=== PATIENT | male | born 1955 | race Two or more races ===

== ENCOUNTER 2018-07-20 12:56 | Inpatient (IN) | payer OTHER ==
[2018-07-20 13:04] VITALS: BMI 33.5
[2018-07-20] MEDS ORDERED: PANTOPRAZOLE SODIUM 40 MG VIAL IVPUSH ONE (13:05)
--- NOTE | 2018-07-20 13:05 | PDOC ---
Rapid Medical Evaluation Time Seen by Provider: 07/20/18 13:00 Medical Evaluation: I have performed a brief in-person evaluation of this patient. The patient presents with a chief complaint of: s/p TAVR (on AC) on has been having melena for around a month; is on Coumadin and states coumadin was stopped on 07/15 and then switched to Lovenox; had EGD and colonoscopy done by Dr. Cardenas today (reports w/ patient); was advised to come to ED by Dr. Cardenas Pertinent physical exam findings: In NAD I have ordered the following: Labs The patient will proceed to the ED for further evaluation. 07/20/18 13:00
[2018-07-20] MEDS ORDERED: PANTOPRAZOLE SODIUM 40 MG VIAL ONE (13:15)
[2018-07-20 13:59] LABS: BASO % 0.6 % (0-2.0); EOS % 1.3 % (0-4.5); HEMATOCRIT 32.5 % (35.4-49); LYMPH % 26.4 % (8-40); MCHC 33.8 g/dl (32.0-35.9); MEAN CELL VOLUME 79.7 fl (80-96); MEAN PLT VOLUME 8.3 fl (7.5-11.1); MONO % 6.9 % (3.8-10.2); NEUT % 64.8 % (42.8-82.8); PLATELET COUNT 130 K/MM3 (134-434); RBC 4.08 M/mm3 (4.00-5.60); RDW 16.7 % (11.9-15.9); WHITE BLOOD COUNT 4.1 K/mm3 (4.0-10.0)
[2018-07-20 14:14] LABS: INR 1.08 (0.83-1.09); PROTHROMBIN TIME (PATIENT) 12.7 SEC (9.7-13.0)
[2018-07-20 14:16] LABS: ACTIVATED PTT 28.4 SECONDS (25.2-36.5)
--- NOTE | 2018-07-20 14:17 | PDOC ---
History of Present Illness - General Chief Complaint: Pain Stated Complaint: STOMACH UCLER Time Seen by Provider: 07/20/18 13:00 History Source: Patient Exam Limitations: No Limitations - History of Present Illness Initial Comments: 07/20/18 14:12 Pt is a 62yo F with PMH of Afib (on Lovenox, was on Coumadin), Arotic valve replacement, CAD s/p stent, PVD, DM presenting to ED from Dr. Cardenas's office s/ p clips for Duieulafoy lesion found with endoscopy today. Pt states he has been having melanous stools for about 1 month, had colonoscopy yesterday and repeat colonoscopy with endoscopy today. Lesion was found and clipped. Pt sent here for monitoring of Hgb which was 12 last month. Pt does not have any complaints at this time, no lightheadedness, abdominal pain, chest pain, palpitations, headache, syncope, sob, weakness, fevers, chills. PMD: Ankit PMH: see hpi PSH: see hpi Meds: see med rec Allergies: vancomycin (skin eruption) Past History - Past Medical History Allergies/Adverse Reactions: Allergies Allergy/AdvReac Type Severity Reaction Status Date / Time vancomycin Allergy Verified 07/20/18 13:04 Home Medications: Ambulatory Orders Unobtainable 07/20/18 Cardiac Disorders: Yes (valve replacement, stents) COPD: No Diabetes: Yes - Surgical History Cardiac Surgery: Yes - Suicide/Smoking/Psychosocial Hx Smoking History: Never smoked Information on smoking cessation initiated: No Hx Alcohol Use: No Drug/Substance Use Hx: No Review of Systems - Review of Systems Constitutional: No: Chills, Fever, Weakness HEENTM: No: Symptoms Reported Respiratory: No: Cough, Shortness of Breath, Hemoptysis Cardiac (ROS): No: Chest Pain, Lightheadedness, Palpitations, Syncope ABD/GI: Yes: Tarry Stools. No: Constipated, Diarrhea, Nausea, Vomiting, Abdominal cramping : No: Burning, Dysuria, Hematuria Musculoskeletal: No: Back Pain, Joint Pain, Muscle Pain Integumentary: No: Symptoms Reported Neurological: No: Headache, Numbness, Tingling *Physical Exam - Vital Signs Last Vital Signs Temp Pulse Resp BP Pulse Ox 98 F 84 19 125/62 100 07/20/18 13:02 07/20/18 13:02 07/20/18 13:02 07/20/18 13:02 07/20/18 13:02 - Physical Exam General Appearance: Yes: Nourished, Appropriately Dressed. No: Apparent Distress HEENT: positive: EOMI, SON, Normal ENT Inspection Neck: positive: Trachea midline, Supple. negative: Lymphadenopathy (R), Lymphadenopathy (L) Respiratory/Chest: positive: Lungs Clear, Normal Breath Sounds. negative: Crackles, Rales, Rhonchi, Stridor, Wheezing Cardiovascular: positive: Regular Rhythm, Regular Rate, S1, S2. negative: Edema , JVD, Murmur Vascular Pulses: Carotid (R): 2+, Carotid (L): 2+, Dorsalis-Pedis (R): 2+, Doralis-Pedis (L): 2+ Gastrointestinal/Abdominal: positive: Normal Bowel Sounds, Soft, Protuberent. negative: Tender Musculoskeletal: negative: CVA Tenderness Extremity: positive: Normal Capillary Refill, Pelvis Stable. 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 fixer II-XII NML intact, Fully Oriented, Alert, Normal Mood/ Affect, Normal Response, Motor Strength 5/5 Moderate Sedation - Procedure Monitoring Vital Signs: Procedure Monitoring Vital Signs Temperature 98 F 07/20/18 13:02 Pulse Rate 84 07/20/18 13:02 Respiratory Rate 19 07/20/18 13:02 Blood Pressure 125/62 07/20/18 13:02 O2 Sat by Pulse Oximetry (%) 100 07/20/18 13:02 ED Treatment Course - LABORATORY CBC & Chemistry Diagram: 07/20/18 13:20 07/20/18 13:20 - ADDITIONAL ORDERS Additional order review: 07/20/18 13:20 RBC 4.08 MCV 79.7 L MCHC 33.8 RDW 16.7 H MPV 8.3 Neutrophils % 64.8 Lymphocytes % 26.4 Monocytes % 6.9 Eosinophils % 1.3 Basophils % 0.6 - Medications Given in the ED: ED Medications Discontinued Medications Generic Name Dose Route Start Last Admin Trade Name Freq PRN Reason Stop Dose Admin Pantoprazole Sodium 40 mg 07/20/18 13:05 07/20/18 13:44 Protonix Iv IVPUSH 03/20/19 13:06 40 mg ONCE ONE Administration Medical Decision Making - Medical Decision Making 07/20/18 14:17 Pt is a 62yo F with PMH of Afib (on Lovenox, was on Coumadin), Arotic valve replacement, CAD s/p stent, PVD, DM presenting to ED from Dr. Cardenas's office s/ p clips for Duieulafoy lesion found with endoscopy today. Pt states he has been having melanous stools for about 1 month, had colonoscopy yesterday and repeat colonoscopy with endoscopy today. Lesion was found and clipped. Pt sent here for monitoring of Hgb which was 12 last month. Pt does not have any complaints at this time, no lightheadedness, abdominal pain, chest pain, palpitations, headache, syncope, sob, weakness, fevers, chills. Vitals: wnl PE: benign. Will admit for serial h/h. labs ordered by RME. added ekg. hgb today is 11 (dropped one unit in one month). Source seems to have been found and fixed. Cr 1.6 (no prior to compare to). Pt accepted to Dr. Justice's service *DC/Admit/Observation/Transfer Diagnosis at time of Disposition: Dieulafoy lesion (hemorrhagic) of stomach and duodenum GI bleed Qualifiers: GI bleed type/associated pathology: melena Qualified Code(s): K92.1 - Melena - Discharge Dispostion Condition at time of disposition: Good Decision to Admit order: Yes - Referrals - Patient Instructions - Post Discharge Activity
[2018-07-20 14:18] LABS: ANION GAP 7 MMOL/L (8-16); BLOOD UREA NITROGEN 53 mg/dL (7-18); CALCIUM 8.4 mg/dL (8.5-10.1); CHLORIDE 106 mmol/L (98-107); CO2 25 mmol/L (21-32); CREATININE 1.6 mg/dL (0.55-1.3); GLUCOSE,RANDOM 128 mg/dL (74-106); POTASSIUM 4.9 mmol/L (3.5-5.1); SODIUM 138 mmol/L (136-145)
--- NOTE | 2018-07-20 14:59 | PDOC ---
Attending Attestation - Resident Resident Name: MadisonSaMarylou - ED Attending Attestation I have performed the following: I have examined & evaluated the patient, The case was reviewed & discussed with the resident, I agree w/resident's findings & plan, Exceptions are as noted - HPI HPI: Pt is a 62yo F with PMH of Afib (on Lovenox, was on Coumadin), Arotic valve replacement, CAD s/p stent, PVD, DM presenting to ED from Dr. Cardenas's office s/ p endocsopy which demonstrates dieulafoy lesion s/p clipping. Pt reports having melanotic stools for about 1 month, seen by PMD and was sent to GI. S/p colonoscopy the day prior and endoscopy today which revealed a dieulafoy lesion. Pt sent to the ER for admission for serial hgb evaluation Pt does not have any complaints at this time, no lightheadedness, abdominal pain , chest pain, palpitations, headache, syncope, sob, weakness, fevers, chills. - Physicial Exam PE: 07/20/18 15:38 GENERAL: The patient is in no acute distress. ENT: Ears normal, nares patent, oropharynx clear without exudates. Moist mucous membranes. NECK: Normal range of motion, supple, no nuchal rigidity LUNGS: Breath sounds equal, clear to auscultation bilaterally. No wheezes, and no crackles. HEART:Regular rate and rhythm, normal S1 and S2 without murmur, rub or gallop. ABDOMEN: Soft, nontender, normoactive bowel sounds. EXTREMITIES: Normal range of motion, no edema. NEUROLOGICAL: Cranial nerves II through XII grossly intact. Normal speech. No focal neurological deficits. SKIN: Warm, Dry, normal turgor, no rashes or lesions noted. - Medical Decision Making 07/20/18 14:55 62-year-old male presented to emergency department for admission. Briefly patient has a history of A. fib on Coumadin, diabetes. Patient had been complaining of melena. Was seen by GI today where endoscopy revealed reportedly lesion. This was clipped 2. Patient was sent to the ER for serial Hgb Will do Labs Will give Protonix Will admit 07/20/18 15:37 EKG: NSR rate of 81 bpm, LAD, no st elevation or depression, t waves upright
[2018-07-20] MEDS ORDERED: DEXTROSE 5%-NORMAL SALINE 1,000 ML IV SCH (18:15)
--- NOTE | 2018-07-20 19:20 | CON.GI ---
Consult Consult Specialty:: GI - History of Present Illness History of Present Illness: 62 y/o male with history of mechanical aortic valve replacement on coumadin was transferee from the [facility] after undergoing EGD with control of bleeding secondary to a Dieulafoy's lesion. I spoke to his outside personal fitness trainer and suggested to restart Coumadin once acute bleeding has resolved. He still has intermittent melena, His hemoglobin is 11. - Alcohol/Substance Use Hx Alcohol Use: No - Smoking History Smoking history: Never smoked Home Medications - Allergies Allergies/Adverse Reactions: Allergies Allergy/AdvReac Type Severity Reaction Status Date / Time vancomycin Allergy Verified 07/20/18 13:04 - Home Medications Home Medications: Ambulatory Orders Unobtainable 07/20/18 Physical Exam-GI Vital Signs: Vital Signs Temperature 98.6 F 07/20/18 16:30 Pulse Rate 82 07/20/18 16:30 Respiratory Rate 19 07/20/18 16:30 Blood Pressure 124/57 L 07/20/18 16:30 O2 Sat by Pulse Oximetry (%) 100 07/20/18 16:30 Constitutional: Yes: Well Nourished Eyes: Yes: Conjunctiva Clear HENT: Yes: Atraumatic Neck: Yes: Supple Cardiovascular: Yes: Regular Rate and Rhythm, Murmur Respiratory: Yes: Regular ...Palpate: Yes: Soft. No: Firm/Rigid, Guarding, Hepatomegaly, Mass, Pulsatile Mass, Splenomegaly, Tenderness Labs: CBC, BMP 07/20/18 13:20 07/20/18 13:20 INR, PTT INR 1.08 (0.83-1.09) 07/20/18 13:20 Problem List - Problems (1) GI bleed Assessment/Plan: secondary to Dielufay's lesion R> IV Protonix Cardiology consult start Heparin in am if no signs of bleeding Dr Serrano is covering tomorrow and Myesha the next day. check CBC in am Code(s): K92.2 - GASTROINTESTINAL HEMORRHAGE, UNSPECIFIED
--- NOTE | 2018-07-20 19:23 | HP ---
Admitting History and Physical - Primary Care Physician PCP: Blake Pham - Admission Chief Complaint: stomach ulcer History of Present Illness: Patient is a 62 y/o male with past medical history of Afib (on Lovenox bridge due to procedure but regulary on Coumadin), AVR, CAD s/p stent x 4-5, PVD, DM. Patient presented from Dr. Cardenas office where he underwent an EGD and was noted to have Duieulafoy lesion where clips where placed. Also complains of melenous stools since colonoscopy 1 month ago. Patient was sent by Dr. Cardenas for Hg monitoring. Current Hg 11.0. Denies complaints of chest pain, SOB, nausea, vomiting, abdominal pain. 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 No: Aneurysm, Aortic Insufficiency , Aortic Stenosis, CHF, Deep Vein Thrombosis, HTN, Hyperlipdemia, DC, Mitral Insufficiency, Mitral Stenosis, Murmur, Pulmonary Hypertension Pulmonary: No: Asthma, Bronchitis, Cancer, COPD, O2 Dependent, Pneumonia, Previously Intubated, Pulmonary Embolus, Pulmonary Fibrosis, Sleep Apnea, Other Gastrointestinal: No: Ascites, Cancer, Constipation, Crohn's Disease, Diverticulitis, Diverticulosis, Esophageal Varices, Gastritis, GERD, GI Bleed, Hemorrhoids, Hiatal Hernia, Inflamatory Bowel Disease, Irritable Bowel Disease, Pancreatitis, Peptic Ulcer Disease, Ulcerative Colitis, Other Hepatobiliary: No: Cirrhosis, Cholelithiasis, Cholecystitis, Choledocholithiasis , Hepatitis A, Hepatitis B, Hepatitis C, Other Renal/: No: Renal Failure, Renal Inusuff, BPH, Cancer, Hematuria, Hemodialysis , Neurogenic Bladder, Renal Calculi, UTI, Other Heme/Onc: No: Anemia, B12 Deficiency, Bleeding Disorder, Cancer, Current Chemotherapy, Current Radiation Therapy, Hemochromatosis, Hypercoaguable State, Myeloproliferative Synd, Sickle Cell Disease, Sickle Cell Trait, Thrombocytopenia, Other Infectious Disease: No: AIDS, C-Diff, Herpes Zoster, HIV, MRSA, STD's, Tuberculosis, VREF, Other Psych: No: Addictions, Anxiety, Bipolar, Depression, Panic, Psychosis, Schizophrenia, Other Musculoskeletal: No: Bursitis, Chronic low back pain, Hemiparesis, Hemiplegia, Osteoarthritis, Paraplegia, Other Rheumatology: No: Fibromyalgia, Gout, Lupus, Rheumatoid Arthritis, Sarcoidosis, Vasculitis, Other ENT: No: Allergic Rhinitis, Sinusitis, Other Endocrine: Yes: Diabetes Mellitus Dermatology: No: Basal Cell, Cellulitis, Eczema, Melanoma, Psoriasis, Squamous Cell, Other - Past Surgical History Past Surgical History: Yes: Colonoscopy, Valve Replacement - Smoking History Smoking history: Never smoked Have you smoked in the past 12 months: No - Alcohol/Substance Use Hx Alcohol Use: No - Social History Usual Living Arrangement: Yes: With Spouse ADL: Independent Home Medications - Allergies Allergies/Adverse Reactions: Allergies Allergy/AdvReac Type Severity Reaction Status Date / Time vancomycin Allergy Verified 07/20/18 13:04 - Home Medications Home Medications: Ambulatory Orders Unobtainable 07/20/18 Review of Systems - Review of Systems Constitutional: reports: No Symptoms Eyes: reports: No Symptoms HENT: reports: No Symptoms Neck: reports: No Symptoms Cardiovascular: reports: No Symptoms Respiratory: reports: No Symptoms Gastrointestinal: reports: Melena Genitourinary: reports: No Symptoms Breasts: reports: No Symptoms Reported Musculoskeletal: reports: No Symptoms Integumentary: reports: No Symptoms Neurological: reports: No Symptoms Endocrine: reports: No Symptoms Hematology/Lymphatic: reports: No Symptoms Psychiatric: reports: No Symptoms Physical Examination Vital Signs: Vital Signs Temperature 98.6 F 07/20/18 16:30 Pulse Rate 82 07/20/18 16:30 Respiratory Rate 19 07/20/18 16:30 Blood Pressure 124/57 L 07/20/18 16:30 O2 Sat by Pulse Oximetry (%) 100 07/20/18 16:30 Constitutional: Yes: Well Nourished, No Distress, Calm Eyes: Yes: Conjunctiva Clear HENT: Yes: Atraumatic Neck: Yes: Supple Cardiovascular: Yes: Regular Rate and Rhythm Respiratory: Yes: Regular, CTA Bilaterally Gastrointestinal: Yes: Normal Bowel Sounds, Soft, Other (non tender) Musculoskeletal: Yes: WNL Extremities: Yes: WNL Edema: No Neurological: Yes: Alert, Oriented Psychiatric: Yes: Alert, Oriented Labs: CBC, BMP 07/20/18 13:20 07/20/18 13:20 Problem List - Problems (1) HTN (hypertension) Assessment/Plan: -continue with lisinopril, coreg, lasix Code(s): I10 - ESSENTIAL (PRIMARY) HYPERTENSION (2) Diabetes Assessment/Plan: -ISS -victoza held until diet resumed -BGM ACHS Code(s): E11.9 - TYPE 2 DIABETES MELLITUS WITHOUT COMPLICATIONS (3) Hyperlipidemia Assessment/Plan: -continue with atorvastatin and zetia Code(s): E78.5 - HYPERLIPIDEMIA, UNSPECIFIED (4) GI bleed Assessment/Plan: -IV hydration -clear liquid diet -Pantoprazole -Hg 11, monitor Hg daily Code(s): K92.2 - GASTROINTESTINAL HEMORRHAGE, UNSPECIFIED Qualifiers: GI bleed type/associated pathology: melena Qualified Code(s): K92.1 - Melena (5) S/P AVR Assessment/Plan: -cardio consult -holding lovenox and afib 2/2 GI bleed until cleared to start Code(s): Z95.2 - PRESENCE OF PROSTHETIC HEART VALVE Assessment/Plan see problem list dvt ppx
[2018-07-20] MEDS: PANTOPRAZOLE SODIUM 80 MG in SODIUM CHLORIDE 100 ML IVPB SCH (19:42)
[2018-07-20] MEDS: SODIUM CHLORIDE 1,000 ML IV SCH (20:00)
[2018-07-20] MEDS ORDERED: INSULIN (NOVOLOG) ASPART 100 UNITS/ML 10ML VIAL ONE (21:10)
[2018-07-20] MEDS: ATORVASTATIN CA 40 MG TABLET (FP) PO SCH (21:30)
[2018-07-20] MEDS: INSULIN SLIDING SCALE (NOVOLOG) 1 VIAL SQ SCH (21:30)
[2018-07-21] MEDS: SODIUM CHLORIDE 1,000 ML IV SCH (02:45)
[2018-07-21] MEDS: PANTOPRAZOLE SODIUM 80 MG in SODIUM CHLORIDE 100 ML IVPB SCH ×2 (04:19→14:50)
[2018-07-21] MEDS: INSULIN SLIDING SCALE (NOVOLOG) 1 VIAL SQ SCH (06:36)
[2018-07-21] MEDS ORDERED: LIRAGLUTIDE 0.6 MG/0.1 ML PEN.INJCTR SQ SCH (07:00)
[2018-07-21] MEDS ORDERED: PT OWN MED DRAWER 7, Y5N ONE (07:03)
[2018-07-21 09:03] LABS: HEMATOCRIT 31.7 % (35.4-49); HEMOGLOBIN 10.7 GM/dL (11.7-16.9); MCH 26.8 pg (25.7-33.7); MCHC 33.6 g/dl (32.0-35.9); MEAN PLT VOLUME 7.5 fl (7.5-11.1); PLATELET COUNT 79 K/MM3 (134-434); RBC 3.97 M/mm3 (4.00-5.60); RDW 16.2 % (11.9-15.9); WHITE BLOOD COUNT 3.2 K/mm3 (4.0-10.0)
[2018-07-21 09:21] LABS: INR 1.07 (0.83-1.09); PROTHROMBIN TIME (PATIENT) 12.6 SEC (9.7-13.0)
[2018-07-21] MEDS: LISINOPRIL 5 MG TABLET (FP) PO SCH (09:21)
[2018-07-21] MEDS: CARVEDILOL 12.5 MG TABLET (FP) PO SCH (09:21)
[2018-07-21] MEDS: EZETIMIBE 10 MG TABLET (FP) PO SCH (09:22)
[2018-07-21] MEDS: FUROSEMIDE 20 MG TABLET (FP) PO SCH (09:22)
[2018-07-21 09:35] LABS: ALBUMIN 3.7 g/dl (3.4-5.0); ALK PHOS 57 U/L (45-117); ANION GAP 6 MMOL/L (8-16); BILIRUBIN,TOTAL 2.4 mg/dL (0.2-1); BLOOD UREA NITROGEN 44 mg/dL (7-18); CALCIUM 7.9 mg/dL (8.5-10.1); CHLORIDE 108 mmol/L (98-107); CO2 26 mmol/L (21-32); CREATININE 1.4 mg/dL (0.55-1.3); GLUCOSE,RANDOM 200 mg/dL (74-106); MAGNESIUM 3.6 mg/dL (1.8-2.4); PHOSPHOROUS 3.6 mg/dL (2.5-4.9); POTASSIUM 4.9 mmol/L (3.5-5.1); SGOT/AST 50 U/L (15-37); SGPT/ALT 62 U/L (13-61); SODIUM 140 mmol/L (136-145); TOT PROT 6.6 g/dl (6.4-8.2)
--- NOTE | 2018-07-21 09:54 | PN ---
Progress Note, Physician Chief Complaint: Dieulafoy lesion Melena Afib History of Present Illness: Previous notes and events reviewed awake and alert NAD continue to have episodes of melena - Current Medication List Current Medications: Active Medications Atorvastatin Calcium (Lipitor -) 40 mg PO HS [facility] Last Admin: 07/20/18 21:30 Dose: 40 mg Carvedilol (Coreg -) 12.5 mg PO DAILY [facility] Last Admin: 07/21/18 09:21 Dose: 12.5 mg Ezetimibe (Zetia -) 10 mg PO DAILY [facility] Last Admin: 07/21/18 09:22 Dose: 10 mg Furosemide (Lasix -) 20 mg PO DAILY [facility] Last Admin: 07/21/18 09:22 Dose: 20 mg Pantoprazole Sodium 80 mg/ (Sodium Chloride) 100 mls @ 10 mls/hr IVPB Q10H [facility] Last Admin: 07/21/18 04:19 Dose: 10 mls/hr Sodium Chloride (Normal Saline -) 1,000 mls @ 150 mls/hr IV ASDIR [facility] Stop: 07/23/18 02:09 Last Admin: 07/21/18 02:45 Dose: 150 mls/hr Insulin Aspart (Novolog Vial Sliding Scale -) 1 vial SQ [facility]; Protocol Last Admin: 07/21/18 06:36 Dose: Not Given Liraglutide (Victoza -) 1.2 mg SQ DAILY@0700 [facility] Last Admin: 07/21/18 07:02 Dose: 1.2 mg Lisinopril (Prinivil) 2.5 mg PO DAILY [facility] Last Admin: 07/21/18 09:21 Dose: 2.5 mg - Objective Vital Signs: Vital Signs Temperature 97.9 F 07/21/18 06:00 Pulse Rate 79 07/21/18 06:00 Respiratory Rate 18 07/21/18 06:00 Blood Pressure 114/52 L 07/21/18 06:00 O2 Sat by Pulse Oximetry (%) 100 07/20/18 22:00 Constitutional: Yes: Well Nourished, No Distress, Calm Eyes: Yes: Conjunctiva Clear HENT: Yes: Atraumatic Neck: Yes: Supple Cardiovascular: Yes: Regular Rate and Rhythm Respiratory: Yes: Regular, CTA Bilaterally Gastrointestinal: Yes: Normal Bowel Sounds, Soft Musculoskeletal: Yes: WNL Extremities: Yes: WNL Edema: No Neurological: Yes: Alert, Oriented Psychiatric: Yes: Alert, Oriented Labs: CBC, BMP 07/21/18 08:10 07/21/18 08:10 INR, PTT INR 1.07 (0.83-1.09) 07/21/18 08:10 Problem List - Problems (1) HTN (hypertension) Assessment/Plan: -continue with lisinopril, coreg, lasix Code(s): I10 - ESSENTIAL (PRIMARY) HYPERTENSION (2) Diabetes Assessment/Plan: -ISS -victoza held until diet resumed -[facility] ACHS Code(s): E11.9 - TYPE 2 DIABETES MELLITUS WITHOUT COMPLICATIONS (3) Hyperlipidemia Assessment/Plan: -continue with atorvastatin and zetia Code(s): E78.5 - HYPERLIPIDEMIA, UNSPECIFIED (4) GI bleed Assessment/Plan: -IV hydration -clear liquid diet -Pantoprazole -Hg 10.7, monitor Hg daily Code(s): K92.2 - GASTROINTESTINAL HEMORRHAGE, UNSPECIFIED Qualifiers: GI bleed type/associated pathology: melena Qualified Code(s): K92.1 - Melena (5) S/P AVR Assessment/Plan: -cardio consult -holding lovenox and coumadin afib 2/2 GI bleed, will re-start when no active bleeding Code(s): Z95.2 - PRESENCE OF PROSTHETIC HEART VALVE Assessment/Plan see problem list dvt ppx
[2018-07-21 10:57] LABS: EPI CELLS 0 /HPF (FEW); HYALINE CASTS 0 /hpf (NEGATIVE); URINE APPEARANCE CLEAR; URINE BACTERIA 0.666 /hpf (NEGATIVE); URINE BILIRUBIN NEGATIVE (<2.0 mg/dL); URINE COLOR YELLOW; URINE GLUCOSE (UA) NEGATIVE (NEGATIVE); URINE KETONE NEGATIVE (NEGATIVE); URINE LEUK ESTERASE NEGATIVE (NEGATIVE); URINE NITRITE NEGATIVE (NEGATIVE); URINE PROTEIN NEGATIVE (NEGATIVE); URINE RBC 0 /hpf (0-3); URINE UROBILINOGEN 0.2 mg/dL (0.2-1.0); URINE WBC 0 /hpf (3-5)
--- NOTE | 2018-07-21 11:01 | EKG ---
Test Reason : Blood Pressure : / mmHG Vent. Rate : 081 BPM Atrial Rate : 081 BPM P-R Int : 162 ms QRS Dur : 100 ms QT Int : 370 ms P-R-T Axes : 063 -36 059 degrees QTc Int : 429 ms NORMAL SINUS RHYTHM LEFT AXIS DEVIATION INCOMPLETE RIGHT BUNDLE BRANCH BLOCK MINIMAL VOLTAGE CRITERIA FOR LVH, MAY BE NORMAL VARIANT CANNOT RULE OUT ANTERIOR INFARCT , AGE UNDETERMINED ABNORMAL ECG WHEN COMPARED WITH ECG OF 23-OCT-2009 12:08, MINIMAL CRITERIA FOR ANTERIOR INFARCT ARE NOW PRESENT NO SIGNIFICANT CHANGE WAS FOUND Confirmed by KOLTON ORNELAS, LINDA ([id number]) on 07/21/2018 11:00:47 AM Referred By: Confirmed By:LINDA HI MD
--- NOTE | 2018-07-21 16:52 | CON.CARD ---
Consult Consult Specialty:: cardiology Referred by:: Dr. Cardenas Reason for Consultation:: mechanical AVR on coumadin, GI bleed - History of Present Illness Chief Complaint: GI bleed History of Present Illness: 62 year old man with pmh reported mechanical AVR x 2 initially for endocarditis done at [facility], CAD s/p stents, reported h/o afib, pvd, DM admitted for h/o melena and EGD showing Dieulafoy's lesion for monitoring for further GI bleed. pt was on lovenox bridging prior to EGD with plan to resume coumadin once gi bleed resolves pt seen and examined today in nad. states he is feeling well. denies any chest pain, sob, palpitations. no pnd, orthopnea, or le edema. Follows with advertising supervisor Dr. Ogden. 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 No: Aneurysm, Aortic Insufficiency, Aortic Stenosis, CHF, Deep Vein Thrombosis, HTN, Hyperlipdemia, RI, Mitral Insufficiency, Mitral Stenosis, Murmur, Pulmonary Hypertension Pulmonary: No: Asthma, Bronchitis, Cancer, COPD, O2 Dependent, Pneumonia, Previously Intubated, Pulmonary Embolus, Pulmonary Fibrosis, Sleep Apnea, Other Gastrointestinal: No: Ascites, Cancer, Constipation, Crohn's Disease, Diverticulitis, Diverticulosis, Esophageal Varices, Gastritis, GERD, GI Bleed, Hemorrhoids, Hiatal Hernia, Inflamatory Bowel Disease, Irritable Bowel Disease, Pancreatitis, Peptic Ulcer Disease, Ulcerative Colitis, Other Hepatobiliary: No: Cirrhosis, Cholelithiasis, Cholecystitis, Choledocholithiasis , Hepatitis A, Hepatitis B, Hepatitis C, Other Renal/: No: Renal Failure, Renal Inusuff, BPH, Cancer, Hematuria, Hemodialysis , Neurogenic Bladder, Renal Calculi, UTI, Other Infectious Disease: No: AIDS, C-Diff, Herpes Zoster, HIV, MRSA, STD's, Tuberculosis, VREF, Other Psych: No: Addictions, Anxiety, Bipolar, Depression, Panic, Psychosis, Schizophrenia, Other Musculoskeletal: No: Bursitis, Chronic low back pain, Hemiparesis, Hemiplegia, Osteoarthritis, Paraplegia, Other Rheumatology: No: Fibromyalgia, Gout, Lupus, Rheumatoid Arthritis, Sarcoidosis, Vasculitis, Other ENT: No: Allergic Rhinitis, Sinusitis, Other Endocrine: Yes: Diabetes Mellitus Dermatology: No: Basal Cell, Cellulitis, Eczema, Melanoma, Psoriasis, Squamous Cell, Other - Past Surgical History Past Surgical History: Yes: Colonoscopy, Valve Replacement - Alcohol/Substance Use Hx Alcohol Use: No - Smoking History Smoking history: Never smoked Have you smoked in the past 12 months: No - Social History ADL: Independent Home Medications - Allergies Allergies/Adverse Reactions: Allergies Allergy/AdvReac Type Severity Reaction Status Date / Time vancomycin Allergy Verified 07/20/18 13:04 - Home Medications Home Medications: Ambulatory Orders Unobtainable 07/20/18 Family Disease History - Family Disease History Family History: Denies Review of Systems - Review of Systems Constitutional: denies: No Symptoms, Chills, Diaphoresis, Fever, Lethargy, Loss of Appetite, Malaise, Night Sweats, Unintentional Wgt. Loss, Weakness, Other Eyes: denies: No Symptoms, Blind Spots, Blurred Vision, Double Vision, Eye Pain , Floaters, Photophobia, Recent Change in Vision, Other HENT: denies: No Symptoms, Difficult Swallowing, Ear Discharge, Ear Pain, Epistaxis, Gingival Bleeding, Hearing Loss, Mouth Swelling, Nasal Congestion, Ocular Prosthesis, Throat Pain, Toothache, Ringing in Ears, Other Neck: denies: No Symptoms, Decreased ROM, Lumps, Pain on Movement, Stiffness, Swollen Glands, Tenderness, Other Cardiovascular: denies: No Symptoms, Chest Pain, Edema, Palpitations, Shortness of Breath, Other Respiratory: denies: No Symptoms, Cough, Exercise Intolerance, Hemoptysis, Orthopnea, PND, Snoring, SOB, SOB on Exertion, Wheezing, Other Gastrointestinal: reports: Melena, Rectal Bleeding. denies: No Symptoms, Abdominal Pain, Bloating, Constipation, Diarrhea, Dysphagia, Indigestion, Nausea , Vomiting, Vomiting Blood, Other Genitourinary: denies: No Symptoms, Burning, Discharge, Dysuria, Flank Pain, Frequency, Hematuria, Incontinence, Lesions, Menses, Pain, Testicular Mass, Testicular Pain, Testicular Swelling, Urgency, Vaginal Bleeding, Other Breasts: denies: No Symptoms Reported, See HPI, Breast Implants, Discharge from Nipple, Lumps, Pain, Skin Changes, Other Musculoskeletal: denies: No Symptoms, Back Pain, Crepitus, Decreased ROM, Extremity Pain, Joint Pain, Joint Swelling, Muscle Pain, Muscle Cramps, Muscle Weakness, Other Integumentary: denies: No Symptoms, Blister, Bruising, Change in Color, Eczema, Erythema, Incision, Lesions, Lump, Pallor, Pruritis, Rash, Wound, Other Neurological: denies: No Symptoms, Change in LOC, Change in Speech, Confusion, Dizziness, Headache, Incoordination, Numbness, Parasthesia, Pre-Existing Deficit , Seizure, Syncope, Tremors, Unsteady Gait, Weakness, Other Endocrine: denies: No Symptoms, Excessive Sweating, Flushing, Increased Hunger, Increased Thirst, Intolerance to Cold, Intolerance to Heat, Unexplained Weight Gain, Unexplained Weight Loss, Other Hematology/Lymphatic: denies: No Symptoms, Easily Bruised, Excessive Bleeding, Swollen Glands, Other Psychiatric: denies: No Symptoms, Altered Sleep Pattern, Anxiety, Depression, Hallucinations, Panic, Paranoia, Suicidal, Other Vital Signs: Vital Signs Temperature 98.0 F 07/21/18 10:00 Pulse Rate 76 07/21/18 10:00 Respiratory Rate 20 07/21/18 10:00 Blood Pressure 128/62 07/21/18 10:00 O2 Sat by Pulse Oximetry (%) 95 07/21/18 09:00 Constitutional: Yes: No Distress, Calm Eyes: Yes: Conjunctiva Clear, EOM Intact HENT: Yes: Atraumatic, Normocephalic Neck: Yes: Supple, Trachea Midline Respiratory: Yes: Regular, CTA Bilaterally. No: Rales, Rhonchi, SOB, Wheezes Gastrointestinal: Yes: Normal Bowel Sounds, Soft. No: Distention, Tenderness Cardiovascular: Yes: Regular Rate and Rhythm, Other (mechanical valve sound heard). No: Bradycardia, Tachycardia, Pulse Irregular, Gallop, Rub, Varicosities JVD: No Carotid Bruit: No PMI: Non-Displaced Heart Sounds: Yes: S1, S2. No: Split S2, S3, S4, Clicks, Gallop, Rub, Bruit Murmur: Yes: Systolic Murmur, Grade 2. No: Diastolic Murmur Extremities: Yes: WNL Edema: No Peripheral Pulses WNL: Yes Peripheral Pulses: 2+ Left Doralis Pedis, 2+ Right Dorsalis Pedis Neurological: Yes: Alert, Oriented Psychiatric: Yes: Alert, Oriented - Other Data Labs, Other Data: CBC, BMP 07/21/18 08:10 07/21/18 08:10 INR, PTT INR 1.07 (0.83-1.09) 07/21/18 08:10 nsr 81bpm, incomplete rbbb, lad, lvh, cannot rule out anterior infarct age undetermined Imaging - Results Chest X-ray: Report Reviewed, Image Reviewed EKG: Report Reviewed, Image Reviewed Other: Report Reviewed, Image Reviewed Assessment/Plan 62 year old man with pmh reported mechanical AVR x 2 initially for endocarditis done at [facility], CAD s/p stents, reported h/o afib, pvd, DM admitted for h/o melena and EGD showing Dieulafoy's lesion for monitoring for further GI bleed. pt was on lovenox bridging prior to EGD with plan to resume coumadin once gi bleed resolves denies any chest pain, sob, palpitations. no pnd, orthopnea, or le edema. Follows with advertising supervisor Dr. Ogden. Mechanical AVR-admitted with GI bleed s/p EGD, possible h/o pafib -nsr on admission ekg -was on lovenox bridging with plan to resume warfarin after egd if no further bleeding -given mechanical valve need to resume AC as soon as possible when felt safe from a GI standpoint -as per Dr. Cardenas's note from 07/21/18 could start heparin today if no further bleeding -please fup with GI if felt safe to start heparin gtt with plan to resume warfarin when safe to do so -cont other home cardiac meds coreg, lisinopril, and lasix
--- NOTE | 2018-07-21 17:33 | PN.GI ---
GI Progress Note Subjective: No acute events No abdominal pain Small dark BM this morning, bowel movement through the day - Objective Vital Signs: Vital Signs Temperature 98.0 F 07/21/18 10:00 Pulse Rate 76 07/21/18 10:00 Respiratory Rate 20 07/21/18 10:00 Blood Pressure 128/62 07/21/18 10:00 O2 Sat by Pulse Oximetry (%) 95 07/21/18 09:00 Constitutional: Calm Eyes: No: Sclera Icterus Cardiovascular: Yes: Regular Rate and Rhythm, Other (audible click) Respiratory: Yes: CTA Bilaterally Gastrointestinal Inspection: No: Distention ...Auscultate: Yes: Normoactive Bowel Sounds ...Palpate: Yes: Soft. No: Hepatomegaly, Splenomegaly, Tenderness Edema: No (No LE edema) Neurological: Yes: Alert Labs: CBC, BMP 07/21/18 08:10 07/21/18 08:10 INR, PTT INR 1.07 (0.83-1.09) 07/21/18 08:10 Problem List - Problems (1) Dieulafoy lesion (hemorrhagic) of stomach and duodenum Assessment/Plan: S/P outpatient endoscopic treatment yesterday by Dr. Cardenas. Ordered reepat CBC this evening and discussed decreasing platelet count with KEVON Gonzales as well as Dr. Brannon. Dr. Brannon will be evaluating the patient this evening. Continue protonix drip Follow-up evening CBC From GI perspective, OK to resume heparin Code(s): K31.82 - DIEULAFOY LESION (HEMORRHAGIC) OF STOMACH AND DUODENUM (2) Abnormal liver function tests Assessment/Plan: ? if secondary to chronic hemolysis secondary to mechanical AVR. Mr. Baxter states tht he was treated previously with Harvoni for chronic hepatitis C by Dr. Azucena Meredith at [facility]. Unclear what his baseline liver chemistries are or his platelets. Spoke with KEVON Gonzales. she was uncertain as well. Code(s): R94.5 - ABNORMAL RESULTS OF LIVER FUNCTION STUDIES
[2018-07-21 17:53] LABS: HEMATOCRIT 30.1 % (35.4-49); HEMOGLOBIN 10.4 GM/dL (11.7-16.9); MCH 27.5 pg (25.7-33.7); MCHC 34.4 g/dl (32.0-35.9); MEAN CELL VOLUME 79.8 fl (80-96); MEAN PLT VOLUME 7.7 fl (7.5-11.1); PLATELET COUNT 71 K/MM3 (134-434); RBC 3.77 M/mm3 (4.00-5.60); RDW 16.3 % (11.9-15.9)
[2018-07-21] MEDS ORDERED: HEPARIN NA (PORCINE) 5,000 UNITS/ML 1ML VIAL IVPUSH PRN ×2 (21:00)
--- NOTE | 2018-07-21 21:12 | CONSULT ---
Consult - text type - Consultation Consultation Note: 62 year old man with pmh reported mechanical AVR x 2 initially for endocarditis done at [facility], CAD s/p stents, reported h/o afib, pvd, DM admitted for h/o melena and EGD showing Dieulafoy's lesion for monitoring for further GI bleed. pt was on lovenox bridging prior to EGD with plan to resume coumadin once gi bleed resolves pt seen and examined today in nad. states he is feeling well. denies any chest pain, sob, palpitations. no pnd, orthopnea, or le edema. Follows with consultant dietitian Dr. Ogden. - Past Surgical History Past Surgical History: Yes: Colonoscopy, Valve Replacement - Smoking History Smoking history: Never smoked - Social History ADL: Independent Home Medications - Allergies Allergies/Adverse Reactions: Allergies Allergy/AdvReac Type Severity Reaction Status Date / Time vancomycin Allergy Verified 07/20/18 13:04 Last Vital Signs Temp Pulse Resp BP Pulse Ox 98.7 F 73 18 141/64 96 07/21/18 18:00 07/21/18 18:00 07/21/18 21:00 07/21/18 18:00 07/21/18 21:00 Cor: RSR, No murmurs, No gallops Lungs: Clear to P&A Abd: Soft, Normal bowel sounds, No organomegaly Ext:No significant edema Skin: No rashes, Integument intact Imaging - Results Chest X-ray: Report Reviewed, Image Reviewed EKG: Report Reviewed, Image Reviewed Other: Report Reviewed, Image Reviewed Assessment/Plan 62 year old man with pmh reported mechanical AVR x 2 initially for endocarditis done at [facility], CAD s/p stents, reported h/o afib, pvd, DM admitted for h/o melena and EGD showing Dieulafoy's lesion for monitoring for further GI bleed. pt was on lovenox bridging prior to EGD with plan to resume coumadin once gi bleed resolves denies any chest pain, sob, palpitations. no pnd, orthopnea, or le edema. Follows with consultant dietitian Dr. Ogden. Mechanical AVR-admitted with GI bleed s/p EGD, possible h/o pafib -was on lovenox bridging with plan to resume warfarin after egd if no further bleeding -given mechanical valve need to resume AC . discuused with gi thrombocytopenia---chronic per patient noted 2 yrs. ago h/o hep.c ? chronic liver dz--check b12/folate/tsh/ldh will follow
[2018-07-21] MEDS: ATORVASTATIN CA 40 MG TABLET (FP) PO SCH (22:05)
[2018-07-22] MEDS: SODIUM CHLORIDE 1,000 ML IV SCH ×3 (00:14→19:46)
[2018-07-22] MEDS: HEPARIN SOD,PORK IN 0.45% NACL 25,000 UNITS/500 ML INFUS.BAG IVPB SCH (00:30)
[2018-07-22] MEDS: PANTOPRAZOLE SODIUM 80 MG in SODIUM CHLORIDE 100 ML IVPB SCH ×3 (00:39→22:57)
[2018-07-22 08:50] LABS: BASO % 0.5 % (0-2.0); EOS % 1.4 % (0-4.5); HEMATOCRIT 29.3 % (35.4-49); HEMOGLOBIN 9.9 GM/dL (11.7-16.9); LYMPH % 21.8 % (8-40); MCHC 33.8 g/dl (32.0-35.9); MEAN CELL VOLUME 79.9 fl (80-96); MEAN PLT VOLUME 7.4 fl (7.5-11.1); NEUT % 69.3 % (42.8-82.8); PLATELET COUNT 63 K/MM3 (134-434); RBC 3.67 M/mm3 (4.00-5.60); RDW 15.9 % (11.9-15.9); WHITE BLOOD COUNT 2.7 K/mm3 (4.0-10.0)
[2018-07-22 10:20] LABS: ALBUMIN 3.7 g/dl (3.4-5.0); ALK PHOS 57 U/L (45-117); ANION GAP 5 MMOL/L (8-16); BILIRUBIN,TOTAL 1.7 mg/dL (0.2-1); BLOOD UREA NITROGEN 23 mg/dL (7-18); CALCIUM 7.5 mg/dL (8.5-10.1); CHLORIDE 112 mmol/L (98-107); CO2 25 mmol/L (21-32); CREATININE 1.2 mg/dL (0.55-1.3); GLUCOSE,RANDOM 195 mg/dL (74-106); POTASSIUM 4.7 mmol/L (3.5-5.1); SGOT/AST 48 U/L (15-37); SGPT/ALT 63 U/L (13-61); SODIUM 143 mmol/L (136-145); TOT PROT 6.6 g/dl (6.4-8.2)
[2018-07-22] MEDS ORDERED: PT OWN MED DRAWER 7, Y5N ONE ×2 (10:22→10:54)
[2018-07-22] MEDS: CARVEDILOL 12.5 MG TABLET (FP) PO SCH (11:02)
[2018-07-22] MEDS: FUROSEMIDE 20 MG TABLET (FP) PO SCH (11:02)
[2018-07-22] MEDS: LISINOPRIL 5 MG TABLET (FP) PO SCH (11:02)
[2018-07-22] MEDS: EZETIMIBE 10 MG TABLET (FP) PO SCH (11:03)
--- NOTE | 2018-07-22 12:01 | PN.GI ---
GI Progress Note Subjective: No overt bleeding Pancytopenia continued States being treated for CHC 18 months ago at [facility] - Objective Vital Signs: Vital Signs Temperature 98.2 F 07/22/18 05:15 Pulse Rate 75 07/22/18 05:15 Respiratory Rate 20 07/22/18 05:15 Blood Pressure 150/70 07/22/18 05:15 O2 Sat by Pulse Oximetry (%) 96 07/21/18 21:00 Constitutional: Calm Eyes: No: Sclera Icterus Cardiovascular: Yes: Regular Rate and Rhythm (+ Mechanical click) Respiratory: Yes: CTA Bilaterally Gastrointestinal Inspection: No: Distention ...Auscultate: Yes: Normoactive Bowel Sounds ...Palpate: No: Hepatomegaly, Splenomegaly, Tenderness ...Percussion: No: Tympanitic Edema: No (No LE edema) Neurological: Yes: Alert Labs: CBC, BMP 07/22/18 07:16 07/22/18 07:16 INR, PTT INR 1.07 (0.83-1.09) 07/21/18 08:10 Hepatic Panel Total Bilirubin 1.7 mg/dL (0.2-1) H 07/22/18 07:16 AST 48 U/L (15-37) H 07/22/18 07:16 ALT 63 U/L (13-61) H 07/22/18 07:16 Alkaline Phosphatase 57 U/L (45-117) 07/22/18 07:16 Albumin 3.7 g/dl (3.4-5.0) 07/22/18 07:16 - ....Imaging Ultrasound: Report Reviewed (US: Hepatosplenomegaly with fatty liver) Problem List - Problems (1) Dieulafoy lesion (hemorrhagic) of stomach and duodenum Assessment/Plan: No overt bleeding noted. While there was decreas in Hgb from yesterday there was an overall decrease in all cell lines as well, including worsening thrombocytopenia. ? if this is his baseline (given finding of hepatosplenomegaly on US) secondary to chronic liver disease. Per the patient, Last outpatient bloodwork was from a month ago at Carlos Baxter's office. Heparin started and hematology following Continue PPI drip for now. If no overt bleeding, change to PO Protonx 40mg daily in AM Mr. Baxter is concerned regarding issue with pancytopenia. 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 I discussed this and the above with KEVON Gonzales. Recommended that she contact his PMD's office to obtain prior bloodwork. Dr. Brunner will be resuming GI coverage for Dr. Cardenas after 5pm today Code(s): K31.82 - DIEULAFOY LESION (HEMORRHAGIC) OF STOMACH AND DUODENUM (2) Abnormal liver function tests Code(s): R94.5 - ABNORMAL RESULTS OF LIVER FUNCTION STUDIES
--- NOTE | 2018-07-22 12:33 | PN ---
Progress Note, Physician Chief Complaint: Dieulafoy lesion Melena Afib History of Present Illness: Previous notes and events reviewed awake and alert NAD Patient complain of chills and shaking this morning but afebrile pancytopenia is worsening, spoke with PMD Dr Pham and reviewed lab work from which shows Plt 92, wbc nl, Hg 12.7, RBC 4.89 - Current Medication List Current Medications: Active Medications Atorvastatin Calcium (Lipitor -) 40 mg PO HS [facility] Last Admin: 07/21/18 22:05 Dose: 40 mg Carvedilol (Coreg -) 12.5 mg PO DAILY [facility] Last Admin: 07/22/18 11:02 Dose: 12.5 mg Ezetimibe (Zetia -) 10 mg PO DAILY [facility] Last Admin: 07/22/18 11:03 Dose: 10 mg Furosemide (Lasix -) 20 mg PO DAILY [facility] Last Admin: 07/22/18 11:02 Dose: 20 mg Pantoprazole Sodium 80 mg/ (Sodium Chloride) 100 mls @ 10 mls/hr IVPB Q10H [facility] Last Admin: 07/22/18 11:45 Dose: 10 mls/hr Sodium Chloride (Normal Saline -) 1,000 mls @ 150 mls/hr IV ASDIR [facility] Stop: 07/23/18 02:09 Last Admin: 07/22/18 00:45 Dose: 150 mls/hr HEPARIN SOD,PORK IN 0.45% NACL (Heparin-1/2ns 25,000 Units/500) 25,000 units in 500 mls @ 20 mls/hr IVPB TITR [facility]; Protocol Last Admin: 07/22/18 00:30 Dose: 1,000 units/hr, 20 mls/hr Insulin Aspart (Novolog Vial Sliding Scale -) 1 vial SQ ACHS [facility]; Protocol Last Admin: 07/21/18 06:36 Dose: Not Given Liraglutide (Victoza -) 1.2 mg SQ DAILY@0700 [facility] Last Admin: 07/21/18 07:02 Dose: 1.2 mg Lisinopril (Prinivil) 2.5 mg PO DAILY [facility] Last Admin: 07/22/18 11:02 Dose: 2.5 mg - Objective Vital Signs: Vital Signs Temperature 98.2 F 07/22/18 05:15 Pulse Rate 75 07/22/18 05:15 Respiratory Rate 20 03/22/19 05:15 Blood Pressure 150/70 07/22/18 05:15 O2 Sat by Pulse Oximetry (%) 96 07/21/18 21:00 Constitutional: Yes: No Distress, Anxious Eyes: Yes: Conjunctiva Clear HENT: Yes: Atraumatic Cardiovascular: Yes: Regular Rate and Rhythm Respiratory: Yes: Regular, CTA Bilaterally Gastrointestinal: Yes: Normal Bowel Sounds, Soft Musculoskeletal: Yes: WNL Extremities: Yes: WNL Edema: No Neurological: Yes: Alert, Oriented Psychiatric: Yes: Alert, Oriented Labs: CBC, BMP 07/22/18 07:16 07/22/18 07:16 INR, PTT INR 1.07 (0.83-1.09) 07/21/18 08:10 Problem List - Problems (1) HTN (hypertension) Assessment/Plan: -continue with lisinopril, coreg, lasix Code(s): I10 - ESSENTIAL (PRIMARY) HYPERTENSION (2) Diabetes Assessment/Plan: -ISS -victoza -[facility] ACHS Code(s): E11.9 - TYPE 2 DIABETES MELLITUS WITHOUT COMPLICATIONS (3) Hyperlipidemia Assessment/Plan: -continue with atorvastatin and zetia Code(s): E78.5 - HYPERLIPIDEMIA, UNSPECIFIED (4) GI bleed Assessment/Plan: -IV hydration -clear liquid diet -Pantoprazole -Hg 9.9, monitor Hg daily Code(s): K92.2 - GASTROINTESTINAL HEMORRHAGE, UNSPECIFIED Qualifiers: GI bleed type/associated pathology: melena Qualified Code(s): K92.1 - Melena (5) S/P AVR Assessment/Plan: -cardio consult -started on Heparin drip Code(s): Z95.2 - PRESENCE OF PROSTHETIC HEART VALVE (6) Pancytopenia Assessment/Plan: -Plt 63, Wbc 2.7, RBC 3.67 -hematology on board -US shows hepatosplenomegaly -will monitor CBC daily Code(s): D61.818 - OTHER PANCYTOPENIA (7) Abnormal liver function tests Assessment/Plan: -US shows hepatosplenomegaly -hx of Hep C and treated with Harvoni, HCV pending -AST 48, ALT 63,alk phod nl -monitor LFT daily Code(s): R94.5 - ABNORMAL RESULTS OF LIVER FUNCTION STUDIES
--- NOTE | 2018-07-22 15:11 | PN ---
Progress Note (short form) - Note Progress Note: Patient seen and examined Progressive pancytopenia in hospital Episode of shaking chills this AM No documented fever however Hacking cough- non productive, but present x several months No dysuria hematuria Last Vital Signs Temp Pulse Resp BP Pulse Ox 98.2 F 81 20 143/64 96 07/22/18 13:44 07/22/18 13:44 07/22/18 05:15 07/22/18 13:44 07/21/18 21:00 HEENT: HUNTER, EOM Intact Oropharynx: No thrush, No mucositis, dentures Cor: RSR, No murmurs, No gallops, prosthetic heart valves in aortic area Lungs: Clear to P&A Abd: Soft, Normal bowel sounds, No organomegaly Ext:No significant edema Skin: No rashes, Integument intact CBC, BMP 07/22/18 07:16 07/22/18 07:16 Abnormal Lab Results 07/21/18 07/22/18 07/22/18 17:00 07:16 07:16 WBC 3.0 L 2.7 L RBC 3.77 L 3.67 L Hgb 10.4 L 9.9 L Hct 30.1 L 29.3 L MCV 79.8 L 79.9 L RDW 16.3 H Plt Count 71 L 63 L MPV 7.4 L PTT (Actin FS) Chloride 112 H Anion Gap 5 L BUN 23 H Random Glucose 195 H Calcium 7.5 L Total Bilirubin 1.7 H AST 48 H ALT 63 H 07/22/18 08:16 WBC RBC Hgb Hct MCV RDW Plt Count MPV PTT (Actin FS) 74.6 H Chloride Anion Gap BUN Random Glucose Calcium Total Bilirubin AST ALT Current Medications Generic Name Dose Route Start Last Admin Trade Name Freq PRN Reason Stop Dose Admin Atorvastatin Calcium 40 mg 07/20/18 22:00 07/21/18 22:05 Lipitor - PO 40 mg HS [facility] Administration Carvedilol 12.5 mg 07/21/18 10:00 07/22/18 11:02 Coreg - PO 12.5 mg DAILY [facility] Administration Ezetimibe 10 mg 07/21/18 10:00 07/22/18 11:03 Zetia - PO 10 mg DAILY [facility] Administration Furosemide 20 mg 07/21/18 10:00 07/22/18 11:02 Lasix - PO 20 mg DAILY [facility] Administration Pantoprazole Sodium 80 mg/ 100 mls @ 10 mls/hr 07/20/18 18:15 07/22/18 11:45 Sodium Chloride IVPB 10 mls/hr Q10H [facility] Administration 8 MG/HR Sodium Chloride 1,000 mls @ 150 mls/hr 07/20/18 19:30 07/22/18 00:45 Normal Saline - IV 07/23/18 02:09 150 mls/hr ASDIR NU[facility] Administration HEPARIN SOD,PORK IN 0.45% NACL 25,000 units in 500 mls @ 20 mls/hr 07/21/18 21 :00 07/22/18 00:30 Heparin-1/2ns 25,000 Units/500 IVPB 1,000 units/hr TITR [facility] 20 mls/hr Administration Protocol 1,000 UNITS/HR Insulin Aspart 1 vial 07/20/18 22:00 07/21/18 06:36 Novolog Vial Sliding Scale - SQ Not Given ACHS [facility] Protocol Liraglutide 1.2 mg 07/21/18 07:00 07/21/18 07:02 Victoza - SQ 1.2 mg DAILY@0700 [facility] Administration Lisinopril 2.5 mg 07/21/18 10:00 07/22/18 11:02 Prinivil PO 2.5 mg DAILY [facility] Administration Ultra sound - fatty liver - hepatosplenomegaly Impression: Progressive pancytopenia Abnormal LFT's Past hx of hepatitis C treated with Harvoni Etiology of progressive fall in platelets, WBC's in hospital unclear. Had shaking chills jn AM- ? infection ---> to culture - - Abnormal LFT's with prior hx of hepatitis C treated with Harvoni [place] hepatosplenomegaly-- contributing to pancytopenia. On heparin -- HIT AB pending but counts had begun to fall prior to heparin therapy Additional screening tests - pending
--- NOTE | 2018-07-22 16:24 | PN ---
Progress Note, Physician History of Present Illness: seen and examined today in nad. sitting on side of bed. denies further rectal bleeding. states zetia given him dry sinuses and has mild nose bleed. - Current Medication List Current Medications: Active Medications Atorvastatin Calcium (Lipitor -) 40 mg PO HS [facility] Last Admin: 07/21/18 22:05 Dose: 40 mg Carvedilol (Coreg -) 12.5 mg PO DAILY [facility] Last Admin: 07/22/18 11:02 Dose: 12.5 mg Ezetimibe (Zetia -) 10 mg PO DAILY [facility] Last Admin: 07/22/18 11:03 Dose: 10 mg Furosemide (Lasix -) 20 mg PO DAILY [facility] Last Admin: 07/22/18 11:02 Dose: 20 mg Pantoprazole Sodium 80 mg/ (Sodium Chloride) 100 mls @ 10 mls/hr IVPB Q10H [facility] Last Admin: 07/22/18 11:45 Dose: 10 mls/hr Sodium Chloride (Normal Saline -) 1,000 mls @ 150 mls/hr IV ASDIR [facility] Stop: 07/23/18 02:09 Last Admin: 07/22/18 00:45 Dose: 150 mls/hr HEPARIN SOD,PORK IN 0.45% NACL (Heparin-1/2ns 25,000 Units/500) 25,000 units in 500 mls @ 20 mls/hr IVPB TITR [facility]; Protocol Last Titration: 07/22/18 16:05 Dose: 1,000 units/hr, 20 mls/hr Insulin Aspart (Novolog Vial Sliding Scale -) 1 vial SQ ACHS [facility]; Protocol Last Admin: 07/21/18 06:36 Dose: Not Given Liraglutide (Victoza -) 1.2 mg SQ DAILY@0700 [facility] Last Admin: 07/21/18 07:02 Dose: 1.2 mg Lisinopril (Prinivil) 2.5 mg PO DAILY [facility] Last Admin: 07/22/18 11:02 Dose: 2.5 mg - Objective Vital Signs: Vital Signs Temperature 98.2 F 07/22/18 13:44 Pulse Rate 81 07/22/18 13:44 Respiratory Rate 20 07/22/18 05:15 Blood Pressure 143/64 07/22/18 13:44 O2 Sat by Pulse Oximetry (%) 96 07/21/18 21:00 Constitutional: Yes: No Distress, Calm Eyes: Yes: Conjunctiva Clear, EOM Intact, PERRL HENT: Yes: Atraumatic, Normocephalic Neck: Yes: Supple, Trachea Midline Cardiovascular: Yes: Regular Rate and Rhythm, Murmur, S1, S2. No: Bradycardia, Tachycardia, Pulse Irregular, Bruit, JVD, Gallop, Rub, S3, S4, Varicosities Respiratory: Yes: Regular, CTA Bilaterally. No: Rales, Rhonchi, SOB, Wheezes Gastrointestinal: Yes: Normal Bowel Sounds, Soft. No: Distention, Tenderness Musculoskeletal: Yes: WNL Extremities: Yes: WNL Edema: No Peripheral Pulses WNL: Yes Neurological: Yes: Alert, Oriented Psychiatric: Yes: Alert, Oriented Labs: CBC, BMP 07/22/18 07:16 07/22/18 07:16 INR, PTT INR 1.07 (0.83-1.09) 07/21/18 08:10 - ....Imaging Chest X-ray: Report Reviewed, Image Reviewed EKG: Report Reviewed, Image Reviewed Other: Report Reviewed, Image Reviewed Assessment/Plan 62 year old man with pmh reported mechanical AVR x 2 initially for endocarditis done at [facility], CAD s/p stents, reported h/o afib, pvd, DM admitted for h/o melena and EGD showing Dieulafoy's lesion for monitoring for further GI bleed. pt was on lovenox bridging prior to EGD with plan to resume coumadin once gi bleed resolves denies any chest pain, sob, palpitations. no pnd, orthopnea, or le edema. 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 Ogden. Mechanical AVR-admitted with GI bleed s/p EGD, possible h/o pafib -nsr on admission ekg -was on lovenox bridging with plan to resume warfarin after egd if no further bleeding -now on heparin gtt which plan would be to bridge to coumadin when felt safe to do so -cont other home cardiac meds coreg, lisinopril, and lasix -pancytopenia being evaluated, drop in platelets preceded starting heparin but pt was on Lovenox prior to admission, HIT AB pending -pt requests to stop zetia as he was not taking it prior to admission as he felt it was causing dry sinuses and mild bloody noses, dcd it
[2018-07-22] MEDS: ATORVASTATIN CA 40 MG TABLET (FP) PO SCH (22:57)
[2018-07-23] MEDS: HEPARIN SOD,PORK IN 0.45% NACL 25,000 UNITS/500 ML INFUS.BAG IVPB SCH (01:34)
[2018-07-23 06:06] LABS: CARCINOEMBRYONIC ANTIGEN 0.9 ng/mL (0.0-4.7)
[2018-07-23] MEDS: PANTOPRAZOLE SODIUM 80 MG in SODIUM CHLORIDE 100 ML IVPB SCH (06:22)
--- NOTE | 2018-07-23 09:54 | DS ---
Physical Examination Vital Signs: Vital Signs Temperature 99.6 F 07/23/18 05:50 Pulse Rate 96 H 07/23/18 05:50 Respiratory Rate 20 07/23/18 05:50 Blood Pressure 134/55 L 07/23/18 05:50 O2 Sat by Pulse Oximetry (%) 100 07/22/18 21:00 Findings/Remarks: Patient is a 62 y/o male with past medical history of Afib (on Lovenox bridge due to procedure but regulary on Coumadin), AVR, CAD s/p stent x 4-5, PVD, DM. Patient presented from Dr. Cardenas office where he underwent an EGD and was noted to have Duieulafoy lesion where clips where placed. Also complains of melenous stools since colonoscopy 1 month ago. Patient was sent by Dr. Cardenas for Hg monitoring. Current Hg 11.0. Denies complaints of chest pain, SOB, nausea, vomiting, abdominal pain. While in patient started on Heparin drip to bridge patient back to coumadin. Receiving Pantoprazole IV. Labs showed patient to be pancytopenic with mildy elevated LFTs. Abdominal US showed hepatoslenomegaly. HIT Ab drawn and results pending. Patient refused lab work this morning. Patient was followed by Hematology. Patient had episode of loose stool this morning and requested to take a shower. Informed patient that Heparin drip cannot be stopped due to increased risk of clotting, blood clots. Patient continue to request to have heparin drip stopped. Continued to explain risks and consequences of stopping Heparin drip and need for continuous infusion. Patient requested to sign out AMA. Constitutional: Yes: No Distress HENT: Yes: Atraumatic Musculoskeletal: Yes: WNL Extremities: Yes: WNL Neurological: Yes: Alert, Oriented Psychiatric: Yes: Alert, Oriented Labs: CBC, BMP 07/22/18 07:16 07/22/18 07:16 Discharge Summary Reason For Visit: GASTROINTESTINAL HEMORRHAGE,DIEULAFOY LESION OF Current Active Problems Abnormal liver function tests (Acute) Diabetes (Acute) Dieulafoy lesion (hemorrhagic) of stomach and duodenum (Acute) GI bleed (Acute) HTN (hypertension) (Acute) Hyperlipidemia (Acute) Pancytopenia (Acute) S/P AVR (Acute) Procedures: Principal: Abdominal US Hospital Course: see progress notes Laboratory Tests 07/20/18 07/20/1819 13:20 13:20 13:20 WBC 4.1 RBC 4.08 Hgb 11.0 L Hct 32.5 L MCV 79.7 L MCH 27.0 MCHC 33.8 RDW 16.7 H Plt Count 130 L MPV 8.3 Absolute Neuts (auto) 2.6 Neutrophils % 64.8 Lymphocytes % 26.4 Monocytes % 6.9 Eosinophils % 1.3 Basophils % 0.6 Nucleated RBC % 0 PT with INR 12.70 INR 1.08 PTT (Actin FS) 28.4 Sodium 138 Potassium 4.9 Chloride 106 Carbon Dioxide 25 Anion Gap 7 L BUN 53 H Creatinine 1.6 H Creat Clearance w eGFR 44.16 POC Glucometer Random Glucose 128 H Calcium 8.4 L Phosphorus Magnesium Total Bilirubin AST ALT Alkaline Phosphatase Total Protein Albumin Tumor Marker AFP Carcinoembryonic Ag Urine Color Urine Appearance Urine pH Ur Specific Saxon Urine Protein Urine Glucose (UA) Urine Ketones Urine Blood Urine Nitrite Urine Bilirubin Urine Urobilinogen Ur Leukocyte Esterase Urine WBC (Auto) Urine RBC (Auto) Urine Casts (Auto) U Epithel Cells (Auto) Urine Bacteria (Auto) Stool Occult Blood Blood Type Antibody Screen 07/20/18 07/20/18 07/20/18 13:20 18:50 21:28 WBC RBC Hgb Hct MCV MCH MCHC RDW Plt Count MPV Absolute Neuts (auto) Neutrophils % Lymphocytes % Monocytes % Eosinophils % Basophils % Nucleated RBC % PT with INR INR PTT (Actin FS) Sodium Potassium Chloride Carbon Dioxide Anion Gap BUN Creatinine Creat Clearance w eGFR POC Glucometer 114 228 Random Glucose Calcium Phosphorus Magnesium Total Bilirubin AST ALT Alkaline Phosphatase Total Protein Albumin Tumor Marker AFP Carcinoembryonic Ag Urine Color Urine Appearance Urine pH Ur Specific Saxon Urine Protein Urine Glucose (UA) Urine Ketones Urine Blood Urine Nitrite Urine Bilirubin Urine Urobilinogen Ur Leukocyte Esterase Urine WBC (Auto) Urine RBC (Auto) Urine Casts (Auto) U Epithel Cells (Auto) Urine Bacteria (Auto) Stool Occult Blood Blood Type A POSITIVE Antibody Screen Negative 07/21/18 07/21/18 07/21/18 03:45 06:34 08:00 WBC RBC Hgb Hct MCV MCH MCHC RDW Plt Count MPV Absolute Neuts (auto) Neutrophils % Lymphocytes % Monocytes % Eosinophils % Basophils % Nucleated RBC % PT with INR INR PTT (Actin FS) Sodium Potassium Chloride Carbon Dioxide Anion Gap BUN Creatinine Creat Clearance w eGFR POC Glucometer 130 Random Glucose Calcium Phosphorus Magnesium Total Bilirubin AST ALT Alkaline Phosphatase Total Protein Albumin Tumor Marker AFP Carcinoembryonic Ag Urine Color Yellow Urine Appearance Clear Urine pH 6.0 Ur Specific Saxon 1.010 Urine Protein Negative Urine Glucose (UA) Negative Urine Ketones Negative Urine Blood Negative Urine Nitrite Negative Urine Bilirubin Negative Urine Urobilinogen 0.2 Ur Leukocyte Esterase Negative Urine WBC (Auto) 0 Urine RBC (Auto) 0 Urine Casts (Auto) 0 U Epithel Cells (Auto) 0 Urine Bacteria (Auto) 0.666 Stool Occult Blood Positive Blood Type Antibody Screen 07/21/18 07/21/18 07/21/18 08:10 08:10 08:10 WBC 3.2 L RBC 3.97 L Hgb 10.7 L Hct 31.7 L MCV 80.0 MCH 26.8 MCHC 33.6 RDW 16.2 H Plt Count 79 L D MPV 7.5 Absolute Neuts (auto) Neutrophils % Lymphocytes % Monocytes % Eosinophils % Basophils % Nucleated RBC % PT with INR 12.60 INR 1.07 PTT (Actin FS) Sodium 140 Potassium 4.9 Chloride 108 H Carbon Dioxide 26 Anion Gap 6 L BUN 44 H Creatinine 1.4 H Creat Clearance w eGFR 51.52 POC Glucometer Random Glucose 200 H Calcium 7.9 L Phosphorus 3.6 Magnesium 3.6 H Total Bilirubin 2.4 H AST 50 H ALT 62 H Alkaline Phosphatase 57 Total Protein 6.6 Albumin 3.7 Tumor Marker AFP Carcinoembryonic Ag Urine Color Urine Appearance Urine pH Ur Specific Saxon Urine Protein Urine Glucose (UA) Urine Ketones Urine Blood Urine Nitrite Urine Bilirubin Urine Urobilinogen Ur Leukocyte Esterase Urine WBC (Auto) Urine RBC (Auto) Urine Casts (Auto) U Epithel Cells (Auto) Urine Bacteria (Auto) Stool Occult Blood Blood Type Antibody Screen 07/21/18 07/21/18 07/21/18 11:36 16:26 17:00 WBC 3.0 L RBC 3.77 L Hgb 10.4 L Hct 30.1 L MCV 79.8 L MCH 27.5 MCHC 34.4 RDW 16.3 H Plt Count 71 L MPV 7.7 Absolute Neuts (auto) Neutrophils % Lymphocytes % Monocytes % Eosinophils % Basophils % Nucleated RBC % PT with INR INR PTT (Actin FS) Sodium Potassium Chloride Carbon Dioxide Anion Gap BUN Creatinine Creat Clearance w eGFR POC Glucometer 195 171 Random Glucose Calcium Phosphorus Magnesium Total Bilirubin AST ALT Alkaline Phosphatase Total Protein Albumin Tumor Marker AFP Carcinoembryonic Ag Urine Color Urine Appearance Urine pH Ur Specific [place]on Urine Protein Urine Glucose (UA) Urine Ketones Urine Blood Urine Nitrite Urine Bilirubin Urine Urobilinogen Ur Leukocyte Esterase Urine WBC (Auto) Urine RBC (Auto) Urine Casts (Auto) U Epithel Cells (Auto) Urine Bacteria (Auto) Stool Occult Blood Blood Type Antibody Screen 07/21/18 07/22/18 07/22/18 21:02 06:52 07:16 WBC RBC Hgb Hct MCV MCH MCHC RDW Plt Count MPV Absolute Neuts (auto) Neutrophils % Lymphocytes % Monocytes % Eosinophils % Basophils % Nucleated RBC % PT with INR INR PTT (Actin FS) Sodium 143 Potassium 4.7 Chloride 112 H Carbon Dioxide 25 Anion Gap 5 L BUN 23 H Creatinine 1.2 Creat Clearance w eGFR 61.55 POC Glucometer 181 171 Random Glucose 195 H Calcium 7.5 L Phosphorus Magnesium Total Bilirubin 1.7 H AST 48 H ALT 63 H Alkaline Phosphatase 57 Total Protein 6.6 Albumin 3.7 Tumor Marker AFP Carcinoembryonic Ag Urine Color Urine Appearance Urine pH Ur Specific [place] Urine Protein Urine Glucose (UA) Urine Ketones Urine Blood Urine Nitrite Urine Bilirubin Urine Urobilinogen Ur Leukocyte Esterase Urine WBC (Auto) Urine RBC (Auto) Urine Casts (Auto) U Epithel Cells (Auto) Urine Bacteria (Auto) Stool Occult Blood Blood Type Antibody Screen 07/22/18 07/22/18 07/22/18 07:16 07:16 08:16 WBC 2.7 L RBC 3.67 L Hgb 9.9 L Hct 29.3 L MCV 79.9 L MCH 27.0 MCHC 33.8 RDW 15.9 Plt Count 63 L MPV 7.4 L Absolute Neuts (auto) 1.9 Neutrophils % 69.3 Lymphocytes % 21.8 Monocytes % 7.0 Eosinophils % 1.4 Basophils % 0.5 Nucleated RBC % 0 PT with INR INR PTT (Actin FS) 74.6 H Sodium Potassium Chloride Carbon Dioxide Anion Gap BUN Creatinine Creat Clearance w eGFR POC Glucometer Random Glucose Calcium Phosphorus Magnesium Total Bilirubin AST ALT Alkaline Phosphatase Total Protein Albumin Tumor Marker AFP 2.9 Carcinoembryonic Ag 0.9 Urine Color Urine Appearance Urine pH Ur Specific [place] Urine Protein Urine Glucose (UA) Urine Ketones Urine Blood Urine Nitrite Urine Bilirubin Urine Urobilinogen Ur Leukocyte Esterase Urine WBC (Auto) Urine RBC (Auto) Urine Casts (Auto) U Epithel Cells (Auto) Urine Bacteria (Auto) Stool Occult Blood Blood Type Antibody Screen 07/22/18 07/22/18 07/22/18 11:43 16:52 22:19 WBC RBC Hgb Hct MCV MCH MCHC RDW Plt Count MPV Absolute Neuts (auto) Neutrophils % Lymphocytes % Monocytes % Eosinophils % Basophils % Nucleated RBC % PT with INR INR PTT (Actin FS) Sodium Potassium Chloride Carbon Dioxide Anion Gap BUN Creatinine Creat Clearance w eGFR POC Glucometer 208 193 208 Random Glucose Calcium Phosphorus Magnesium Total Bilirubin AST ALT Alkaline Phosphatase Total Protein Albumin Tumor Marker AFP Carcinoembryonic Ag Urine Color Urine Appearance Urine pH Ur Specific [place] Urine Protein Urine Glucose (UA) Urine Ketones Urine Blood Urine Nitrite Urine Bilirubin Urine Urobilinogen Ur Leukocyte Esterase Urine WBC (Auto) Urine RBC (Auto) Urine Casts (Auto) U Epithel Cells (Auto) Urine Bacteria (Auto) Stool Occult Blood Blood Type Antibody Screen Active Medications Generic Name Dose Route Start Last Admin Trade Name Freq PRN Reason Stop Dose Admin Atorvastatin Calcium 40 mg 07/20/18 22:00 07/22/18 22:57 Lipitor - PO 40 mg HS NUHA Administration Carvedilol 12.5 mg 07/21/18 10:00 07/22/18 11:02 Coreg - PO 12.5 mg DAILY NUHA Administration Furosemide 20 mg 07/21/18 10:00 07/22/18 11:02 Lasix - PO 20 mg DAILY NUHA Administration Pantoprazole Sodium 80 mg/ 100 mls @ 10 mls/hr 07/20/18 18:15 07/23/18 06:22 Sodium Chloride IVPB Not Given Q10H NUHA 8 MG/HR HEPARIN SOD,PORK IN 0.45% NACL 25,000 units in 500 mls @ 20 mls/hr 07/21/18 21 :00 07/23/18 01:34 Heparin-1/2ns 25,000 Units/500 IVPB 1,000 units/hr TITR NUHA 20 mls/hr Administration Protocol 1,000 UNITS/HR Insulin Aspart 1 vial 07/20/18 22:00 07/21/18 06:36 Novolog Vial Sliding Scale - SQ Not Given ACHS NUHA Protocol Liraglutide 1.2 mg 07/21/18 07:00 07/21/18 07:02 Victoza - SQ 1.2 mg DAILY@0700 ON LICENSE OF [facility] Administration Lisinopril 2.5 mg 07/21/18 10:00 07/22/18 11:02 Prinivil PO 2.5 mg DAILY NUHA Administration Microbiology 07/22/18 07:16 Blood - Peripheral Venous Blood Culture - Preliminary NO GROWTH OBTAINED AFTER 24 HOURS, INCUBATION TO CONTINUE FOR 4 DAYS. 07/21/18 19:00 Blood - Peripheral Venous Blood Culture - Preliminary NO GROWTH OBTAINED AFTER 24 HOURS, INCUBATION TO CONTINUE FOR 4 DAYS. Condition: Guarded - Instructions Diet, Activity, Other Instructions: follow up with PMD within 48hrs follow up with GI Dr. Cardenas follow up with business planning manager continue with current medication as prescribed return to ER if develop severe chest pain, SOB, rectal bleeding, melena Disposition: AGAINST MEDICAL ADVICE - Home Medications Comprehensive Discharge Medication List: Ambulatory Orders Unobtainable 07/20/18
[2018-07-23 10:03] VITALS: BP 149/65; PULSE 98; TEMP 98.9
[2018-07-23] MEDS: LISINOPRIL 5 MG TABLET (FP) PO SCH (10:26)
[2018-07-23] MEDS: CARVEDILOL 12.5 MG TABLET (FP) PO SCH (10:26)
[2018-07-23] MEDS: FUROSEMIDE 20 MG TABLET (FP) PO SCH (10:26)
== END 2018-07-23 10:30 | disposition left against medical advice (07) | DRG 378 ==
LOC: JER 12:56 → JERBED 14:25 → J6S 15:48 → OBSVTOIN 19:28
PROVIDERS: ADMIT Family Medicine; ATTEND Family Medicine
DX: K31.82 Dieulafoy lesion (hemorrhagic) of stomach and duodenum (principal); D61.818 Other pancytopenia; I48.91 Unspecified atrial fibrillation; Z79.01 Long term (current) use of anticoagulants; Z95.2 Presence of prosthetic heart valve; I25.10 Atherosclerotic heart disease of native coronary artery without angina pectoris; E11.51 Type 2 diabetes mellitus with diabetic peripheral angiopathy without gangrene; E78.5 Hyperlipidemia, unspecified; R94.5 Abnormal results of liver function studies; R05 Cough; K76.0 Fatty (change of) liver, not elsewhere classified; R16.2 Hepatomegaly with splenomegaly, not elsewhere classified; Z79.4 Long term (current) use of insulin
CPT/HCPCS: 36415; 76700-TC; 80048; 80053; 81003; 82105; 82272; 82378; 82542; 82962; 83735; 84100; 85025; 85027; 85610; 85730; 86022; 86850; 86900; 86901; 87040; 87086; 87522; 93005; 93010; 99282-25; G0378; J7030